=== PATIENT | female | born 1955 | race Two or more races ===

== ENCOUNTER 2018-11-07 14:59 | Emergency (ER) | payer OTHER ==
[~2018-11-07] VITALS: Ht 157.5 cm; Wt 786.5 kg
[2018-11-07 20:25] VITALS: BP 108/61
== END 2018-11-07 20:25 | disposition home or self-care (01) ==
LOC: ED 14:59
DX: R05 Cough (principal); I10 Essential (primary) hypertension; Z98.890 Other specified postprocedural states
CPT/HCPCS: J7512